=== PATIENT | female | born 1990 | race Caucasian/White ===

== ENCOUNTER → 2024-10-23 | Outpatient (CLI) | payer OTHER ==
[~2024-10-23] MED LIST: ANUS2.5C2 PR; CLOT1CRE71 EXT; DOCU5LIQ PO; IBUP80TA PO; MOM30SS PO; OXYC1TAB23 PO; PRENTAB66 PO
== END ==
LOC: M WUC 08:45
PROVIDERS: ATTEND Nurse Practitioner Family
DX: M25.531 Pain in right wrist (principal)